=== PATIENT | female | born 1965 | race Caucasian/White ===

== ENCOUNTER 2017-07-13 12:57 | Emergency (ER) | payer BC ==
[~2017-07-13] VITALS: Ht 162.6 cm; Wt 55.0 kg
[2017-07-13] MEDS ORDERED: IOHEXOL 350 MG/ML 10 ML VIAL (for RAD DIAG) IVCONTRAST ONE (12:58)
--- NOTE | 2017-07-13 13:18 | PD ---
Physical Exam Date Seen by Provider: Jul 13, 2017 Time Seen by Provider: 13:16 Narrative 51 yo female here for palpitations and lower abdominal pain. Going on since today. period started today but she has not had one in some time. Pain is cramping and severe. Some SOB with excertion and feeling heart is palpitating. Vitals are stable in triage. Awaiting bed placement. Data Data Orders Orders Electrocardiogram (07/13/17 13:15) Complete Blood Count With Diff (07/13/17 13:15) Comprehensive Metabolic Panel (07/13/17 13:15) Ckmb (Isoenzyme) Profile (07/13/17 13:15) Troponin I (07/13/17 13:15) Lipase (07/13/17 13:15) Urinalysis - C+S If Indicated (07/13/17 13:15) Magnesium (Mg) (07/13/17 13:15) Thyroid Stimulating Hormone (07/13/17 13:15) Ed Urine Pregnancytest Poc (07/13/17 13:15) [facility] Medical Record Reviewed: Yes Supervised Visit with SEFERINO: No John Allan Jul 13, 2017 13:18
--- NOTE | 2017-07-13 14:02 | PD ---
HPI Chief Complaint: Abdominal Pain Time Seen by Provider: 14:00 Travel History International Travel<30 days: No Contact w/Intl Traveler<30days: No Traveled to known affect area: No History of Present Illness HPI 51-year-old with complaints of lower abdominal cramping, and palpitations. Patient also complains of shortness of breath with exertion. She started a period today which she has not had for some time. She states she had a regular flow this morning but now none. She denies chest pain but feels her heart is pending. The patient's current cramping is mainly in the suprapubic area. She denies flank pain. She is nauseous but no vomiting. Denies fever. Denies vaginal discharge other than previous blood. Unsure if she could be . Her last period was in April but she is perimenopausal. Pain is currently an 8 out of 10. She has no known drug allergies. PFSH Past Medical History ?: Not LMP: 07/13/17 Past Surgical History Abdominal Surgery: No Social History Alcohol Use: Yes Tobacco Use: No Substance Use: No Allergies-Medications (Allergen,Severity, Reaction): Coded Allergies: No Known Allergies (Unverified , 07/13/17) Reported Meds & Prescriptions Reported Meds & Active Scripts Active Tramadol (Tramadol HCl) 50 Mg Tab 50 Mg PO Q8H PRN Physical Exam Narrative GENERAL: Patient appears in mild to moderate distress. SKIN: Warm and dry.. Normal turgor. No rash. HEAD: Atraumatic. Normocephalic. EYES: Pupils equal and round. No scleral icterus. No injection or drainage. ENT: No nasal bleeding or discharge. Mucous membranes pink and moist. Pharynx is clear. Airway is patent. NECK: Trachea midline. Supple and nontender. CARDIOVASCULAR: Regular rate and rhythm. RESPIRATORY: No accessory muscle use. Clear to auscultation. Breath sounds equal bilaterally. GASTROINTESTINAL: Abdomen soft, moderate diffuse lower abdominal tenderness. Nondistended. No CVA tenderness. Question of rebound tenderness in the right lower quadrant. Bowel sounds present in all quadrants. Hepatic and splenic margins not palpable. MUSCULOSKELETAL: Extremities without clubbing, cyanosis, or edema. No obvious deformities. NEUROLOGICAL: Awake and alert. No obvious cranial nerve deficits. Motor grossly within normal limits. Five out of 5 muscle strength in the arms and legs. Normal speech. PSYCHIATRIC: Appropriate mood and affect; insight and judgment normal. Data Data Last Documented VS Vital Signs Date Time Temp Pulse Resp B/P (MAP) Pulse Ox O2 Delivery O2 Flow Rate FiO2 07/13/17 19:45 07/13/17 17:33 98.6 69 18 99 Room Air Orders Orders Electrocardiogram (07/13/17 13:15) Complete Blood Count With Diff (07/13/17 13:15) Comprehensive Metabolic Panel (07/13/17 13:15) Ckmb (Isoenzyme) Profile (07/13/17 13:15) Troponin I (07/13/17 13:15) Lipase (07/13/17 13:15) Urinalysis - C+S If Indicated (07/13/17 13:15) Magnesium (Mg) (07/13/17 13:15) Thyroid Stimulating Hormone (07/13/17 13:15) Ed Urine Pregnancytest Poc (07/13/17 13:15) Ct Abd/Pel W Iv Contrast(Rout) (07/13/17 14:11) Iv Access Insert/Monitor (07/13/17 14:11) Ecg Monitoring (07/13/17 14:11) Oximetry (07/13/17 14:11) NPO (07/13/17 14:11) Morphine Inj (Morphine Inj) (07/13/17 14:15) Ondansetron Inj (Zofran Inj) (07/13/17 14:15) Sodium Chlor 0.9% 1000 Ml Inj (Ns 1000 M (07/13/17 14:11) Sodium Chloride 0.9% Flush (Ns Flush) (07/13/17 14:15) Oral Contrast - Adult (07/13/17 14:25) Ketorolac Inj (Toradol Inj) (07/13/17 14:45) Diatrizoate Liq ( Gastroview Liq) (07/13/17 15:52) Iohexol 350 Inj (Omnipaque 350 Inj) (07/13/17 12:58) Labs Laboratory Tests Test 07/13/17 14:30 White Blood Count 14.3 TH/MM3 Red Blood Count 4.95 MIL/MM3 Hemoglobin 14.6 GM/DL Hematocrit 44.5 % Mean Corpuscular Volume 90.0 FL Mean Corpuscular Hemoglobin 29.5 PG Mean Corpuscular Hemoglobin Concent 32.8 % Red Cell Distribution Width 13.6 % Platelet Count 343 TH/MM3 Mean Platelet Volume 7.2 FL Neutrophils (%) (Auto) 91.9 % Lymphocytes (%) (Auto) 3.6 % Monocytes (%) (Auto) 3.6 % Eosinophils (%) (Auto) 0.3 % Basophils (%) (Auto) 0.6 % Neutrophils # (Auto) 13.1 TH/MM3 Lymphocytes # (Auto) 0.5 TH/MM3 Monocytes # (Auto) 0.5 TH/MM3 Eosinophils # (Auto) 0.0 TH/MM3 Basophils # (Auto) 0.1 TH/MM3 CBC Comment DIFF FINAL Differential Comment Urine Color YELLOW Urine Turbidity CLEAR Urine pH 6.0 Urine Specific [place] 1.031 Urine Protein TRACE mg/dL Urine Glucose (UA) NEG mg/dL Urine Ketones NEG mg/dL Urine Occult Blood SMALL Urine Nitrite NEG Urine Bilirubin NEG Urine Urobilinogen LESS THAN 2.0 MG/DL Urine Leukocyte Esterase NEG Urine RBC 7 /hpf Urine WBC 1 /hpf Urine Squamous Epithelial Cells <1 /hpf Urine Mucus MOD /lpf Microscopic Urinalysis Comment CULT NOT INDICATED Blood Urea Nitrogen 12 MG/DL Creatinine 0.94 MG/DL Random Glucose 82 MG/DL Total Protein 7.8 GM/DL Albumin 3.9 GM/DL Calcium Level 8.3 MG/DL Magnesium Level 2.1 MG/DL Alkaline Phosphatase 53 U/L Aspartate Amino Transf (AST/SGOT) 10 U/L Alanine Aminotransferase (ALT/SGPT) 20 U/L Total Bilirubin 0.4 MG/DL Sodium Level 137 MEQ/L Potassium Level 3.8 MEQ/L Chloride Level 101 MEQ/L Carbon Dioxide Level 28.7 MEQ/L Anion Gap 7 MEQ/L Estimat Glomerular Filtration Rate 63 ML/MIN Total Creatine Kinase 75 U/L Troponin I LESS THAN 0.02 NG/ML Lipase 74 U/L Thyroid Stimulating Hormone 3rd Gen 1.650 uIU/ML [facility] Medical Decision Making Medical Screen Exam Complete: Yes Emergency Medical Condition: Yes Differential Diagnosis Lower abdominal pain. Urinary tract infection. . Possible tubal. Appendicitis. Narrative Course Patient appears medically stable at time of exam. EKG and CT of the abdomen and pelvis ordered. Urinalysis and urine is ordered. Labs ordered including CBC, CMP, TSH, lipase, cardiac panel. IV access is obtained patient is given Zofran 4 mg IV as well as Toradol 30 mg IV. Patient is not per urinary test. CBC shows a leukocytosis of 14.3 with neutrophils of 91.9%. CMP is unremarkable. Troponin is less than 0.02. Lipase is normal. TSH is normal. BUN/creatinine are normal. Urinalysis is unremarkable. 1900 hrs. patient states she has improved after the Zofran and Toradol in her abdominal symptoms. The results are still pending. Care the patient is turned over to Dr. Willson pending CT results. Scripts Tramadol (Tramadol) 50 Mg Tab 50 MG PO Q8H Y for PAIN, #10 TAB 0 Refills Prov: Bari Willson MD 07/13/17 Condition: Stable Brenton Cordova Jul 13, 2017 14:02
[2017-07-13] MEDS ORDERED: SODIUM CHLOR 0.9% 1000 ML INJ 1,000 ML IV SCH (14:11)
[2017-07-13] MEDS ORDERED: SODIUM CHLORIDE 0.9% FLUSH 10 ML FLUSH IV FLUSH PRN (14:15)
[2017-07-13] MEDS ORDERED: ONDANSETRON HCL 4 MG/2 ML VIAL IVP ONE (14:15)
[2017-07-13] MEDS ORDERED: MORPHINE SULFATE 4 MG/ML INJ IV PUSH ONE (14:15)
[2017-07-13] MEDS ORDERED: KETOROLAC TROMETHAMINE 60 MG/2 ML (IM) VIAL IM ONE (14:45)
[2017-07-13 15:09] LABS: AUTOMATED NEUTROPHIL # 13.1 TH/MM3 (1.8-7.7); BASOPHIL # 0.1 TH/MM3 (0-0.2); BASOPHIL % 0.6 % (0.0-2.0); EOSINOPHIL % 0.3 % (0.0-4.0); HEMATOCRIT 44.5 % (35.0-46.0); HEMO FLAGS DIFF FINAL; LYMPH % 3.6 % (9.0-44.0); LYMPHOCYTE # 0.5 TH/MM3 (1.0-4.8); MEAN CORPUSCULAR HEMOGLOBIN 29.5 PG (27.0-34.0); MEAN CORPUSCULAR HGB CONC 32.8 % (32.0-36.0); MONO % 3.6 % (0.0-8.0); NEUT % 91.9 % (16.0-70.0); PLATELET COUNT 343 TH/MM3 (150-450); RED BLOOD COUNT 4.95 MIL/MM3 (4.00-5.30); RED CELL DISTRIBUTION WIDTH 13.6 % (11.6-17.2); WHITE BLOOD COUNT 14.3 TH/MM3 (4.0-11.0)
[2017-07-13 15:17] LABS: ANION GAP 7 MEQ/L (5-15); AST (GOT) 10 U/L (15-37); BICARBONATE 28.7 MEQ/L (21.0-32.0); BLOOD UREA NITROGEN 12 MG/DL (7-18); CHLORIDE 101 MEQ/L (98-107); GLOMERULAR FILTRATION RATE 63 ML/MIN (>89); MAGNESIUM 2.1 MG/DL (1.5-2.5); POTASSIUM 3.8 MEQ/L (3.5-5.1); SODIUM (NA) 137 MEQ/L (136-145)
[2017-07-13 15:28] LABS: ALKALINE PHOSPHATASE 53 U/L (45-117); ALT (GPT) 20 U/L (10-53); TOTAL BILIRUBIN ADULT 0.4 MG/DL (0.2-1.0)
[2017-07-13 15:33] LABS: CREATINE KINASE 75 U/L (26-192)
[2017-07-13 15:46] LABS: BLOOD, URINE SMALL (NEG); COMMENT (UR) CULT NOT INDICATED; CULTURE IF INDICATED CULT NOT INDICATED; GLUCOSE,URINE NEG (NEG); KETONE, URINE NEG (NEG); MUCUS URINE MOD /lpf (OCC); NITRITE,URINE NEG (NEG); SQUAMOUS EPITHELIAL CELL URINE <1 /hpf (0-5); URINE COLOR YELLOW (YELLW/STRAW)
[2017-07-13 15:50] VITALS: O2SAT 99
[2017-07-13] MEDS ORDERED: DIATRIZOATE MEGLUM/DIATRIZOATE SOD 9 ML CUP ONE (15:52)
[2017-07-13 17:33] VITALS: BP 126/71; PULSE 69; RESP 18; TEMP 98.6; O2SAT 99
--- NOTE | 2017-07-13 19:15 | RADRPT ---
EXAM DATE/TIME: 07/13/2017 18:28 [place] COMPARISON: No previous studies available for comparison. INDICATIONS : Low abdomen pain with nausea. IV CONTRAST: 86 cc Omnipaque 350 (iohexol) IV ORAL CONTRAST: Prescribed oral contrast ingested. RADIATION DOSE: 4.91 CTDIvol (mGy) MEDICAL HISTORY : None SURGICAL HISTORY : section. ENCOUNTER: Initial ACUITY: 1 day PAIN SCALE: 6/10 LOCATION: Bilateral lower quadrant TECHNIQUE: Volumetric scanning of the abdomen and pelvis was performed. Using automated exposure control and adjustment of the mA and/or kV according to patient size, radiation dose was kept as low as reasonably achievable to obtain optimal diagnostic quality images. DICOM format image data is av ailable electronically for review and comparison. FINDINGS: There is a small 0.6 cm hypodensity seen in the lateral segment of the left lobe of th e liver likely representing a small cyst or hemangioma. The liver is otherwise unremarkable. The sp simon, pancreas, adrenal glands and kidneys are normal. There are minimal calcifications seen through out the arterial system. No aneurysm is seen. The bowel is unremarkable. There is an area of low density seen in the central aspects of the uterine cervix. The uterus and ov alex appear otherwise unremarkable. The patient does have a 1.9 cm area of low density seen at the right introitus likely representing a Bartholin gland cyst. Bilateral breast implants are seen in the lower chest. The lung bases are clear. The bony structure s are grossly intact. CONCLUSION: 1. 3.7 cm area of low density in the central aspect of the uterine cervix. This could represent fluid in the endocervical canal versus a low density lesion such as a leiomyoma. 2. Bartholin gland cyst at the right introitus. Alan Chavez MD on July 13, 2017 at 18:51 Board Certified Radiologist. This report was verified electronically.
[2017-07-13] MEDS ORDERED: TRAM50TA PO (19:34)
--- NOTE | 2017-07-13 19:35 | PD ---
Data Data Last Documented VS Vital Signs Date Time Temp Pulse Resp B/P (MAP) Pulse Ox O2 Delivery O2 Flow Rate FiO2 07/13/17 17:33 98.6 69 18 126/71 (89) 99 Room Air Orders Orders Electrocardiogram (07/13/17 13:15) Complete Blood Count With Diff (07/13/17 13:15) Comprehensive Metabolic Panel (07/13/17 13:15) Ckmb (Isoenzyme) Profile (07/13/17 13:15) Troponin I (07/13/17 13:15) Lipase (07/13/17 13:15) Urinalysis - C+S If Indicated (07/13/17 13:15) Magnesium (Mg) (07/13/17 13:15) Thyroid Stimulating Hormone (07/13/17 13:15) Ed Urine Pregnancytest Poc (07/13/17 13:15) Ct Abd/Pel W Iv Contrast(Rout) (07/13/17 14:11) Iv Access Insert/Monitor (07/13/17 14:11) Ecg Monitoring (07/13/17 14:11) Oximetry (07/13/17 14:11) NPO (07/13/17 14:11) Morphine Inj (Morphine Inj) (07/13/17 14:15) Ondansetron Inj (Zofran Inj) (07/13/17 14:15) Sodium Chlor 0.9% 1000 Ml Inj (Ns 1000 M (07/13/17 14:11) Sodium Chloride 0.9% Flush (Ns Flush) (07/13/17 14:15) Oral Contrast - Adult (07/13/17 14:25) Ketorolac Inj (Toradol Inj) (07/13/17 14:45) Diatrizoate Liq ( Gastroview Liq) (07/13/17 15:52) Iohexol 350 Inj (Omnipaque 350 Inj) (07/13/17 12:58) Labs Laboratory Tests Test 07/13/17 14:30 White Blood Count 14.3 TH/MM3 Red Blood Count 4.95 MIL/MM3 Hemoglobin 14.6 GM/DL Hematocrit 44.5 % Mean Corpuscular Volume 90.0 FL Mean Corpuscular Hemoglobin 29.5 PG Mean Corpuscular Hemoglobin Concent 32.8 % Red Cell Distribution Width 13.6 % Platelet Count 343 TH/MM3 Mean Platelet Volume 7.2 FL Neutrophils (%) (Auto) 91.9 % Lymphocytes (%) (Auto) 3.6 % Monocytes (%) (Auto) 3.6 % Eosinophils (%) (Auto) 0.3 % Basophils (%) (Auto) 0.6 % Neutrophils # (Auto) 13.1 TH/MM3 Lymphocytes # (Auto) 0.5 TH/MM3 Monocytes # (Auto) 0.5 TH/MM3 Eosinophils # (Auto) 0.0 TH/MM3 Basophils # (Auto) 0.1 TH/MM3 CBC Comment DIFF FINAL Differential Comment Urine Color YELLOW Urine Turbidity CLEAR Urine pH 6.0 Urine Specific [place] 1.031 Urine Protein TRACE mg/dL Urine Glucose (UA) NEG mg/dL Urine Ketones NEG mg/dL Urine Occult Blood SMALL Urine Nitrite NEG Urine Bilirubin NEG Urine Urobilinogen LESS THAN 2.0 MG/DL Urine Leukocyte Esterase NEG Urine RBC 7 /hpf Urine WBC 1 /hpf Urine Squamous Epithelial Cells <1 /hpf Urine Mucus MOD /lpf Microscopic Urinalysis Comment CULT NOT INDICATED Blood Urea Nitrogen 12 MG/DL Creatinine 0.94 MG/DL Random Glucose 82 MG/DL Total Protein 7.8 GM/DL Albumin 3.9 GM/DL Calcium Level 8.3 MG/DL Magnesium Level 2.1 MG/DL Alkaline Phosphatase 53 U/L Aspartate Amino Transf (AST/SGOT) 10 U/L Alanine Aminotransferase (ALT/SGPT) 20 U/L Total Bilirubin 0.4 MG/DL Sodium Level 137 MEQ/L Potassium Level 3.8 MEQ/L Chloride Level 101 MEQ/L Carbon Dioxide Level 28.7 MEQ/L Anion Gap 7 MEQ/L Estimat Glomerular Filtration Rate 63 ML/MIN Total Creatine Kinase 75 U/L Troponin I LESS THAN 0.02 NG/ML Lipase 74 U/L Thyroid Stimulating Hormone 3rd Gen 1.650 uIU/ML MDM Supervised Visit with SEFERINO: Yes Narrative Course The patient was initially evaluated by my PA as well as the previous provider and signed out to me at the end of their shift at approximately 7:00 PM. See their note for further details. Briefly this is a 51-year-old female who is here for evaluation of lower abdominal pain and vaginal bleeding that started earlier today. Vaginal bleeding has stopped. Patient was given Toradol by the previous provider with improvement in pain. Vital signs show heart rate 69, blood pressure 126/71, pulse ox 99% on room air , oral temp of 98.6F. CBC shows WBC 14.3, hemoglobin 14.6, hematocrit 44.5, platelets 343, neutrophils 91.9%. CMP is unremarkable. Cardiac enzymes are negative. Lipase is 74. TSH is 1.65. Urine is negative. UA shows small occult blood, 7 rbc's, not suggestive of UTI. CT abdomen pelvis: CONCLUSION: 1. 3.7 cm area of low density in the central aspect of the uterine cervix. This could represent fluid in the endocervical canal versus a low density lesion such as a leiomyoma. 2. Bartholin gland cyst at the right introitus. On my assessment the patient is resting comfortably. She has mild suprapubic tenderness without peritoneal signs. She reports history of Bartholin's cyst on the right, however states today this is not causing her any discomfort. She was made aware of all findings and provided a copy of her CT abdomen pelvis report. She is sexually active with one partner, her , and is in a monogamous relationship. At this point she is stable for further workup as an outpatient. She will follow-up with her [facility] [employer] doctor. I stressed the importance of follow-up to rule out a uterine mass or cancer. She was informed on when to return to the emergency department. She verbalizes understanding and agreement with plan. Diagnosis Primary Impression: Leiomyoma Additional Impressions: Bartholin's cyst Hepatic cyst Referrals: Echo Tech 3 days Primary Care Physician 3 days Additional Instruction: Follow-up with your DI[employer] doctor this week. Follow-up with a primary care physician this week. Return to the emergency department for worsening symptoms or any other concerns. Scripts Tramadol (Tramadol) 50 Mg Tab 50 MG PO Q8H Y for PAIN, #10 TAB 0 Refills Prov: Bari Willson MD 07/13/17 Disposition: 01 DISCHARGE HOME Condition: Stable Bari Willson MD Jul 13, 2017 19:35
--- NOTE | 2017-07-14 17:41 | EKG ---
Date Performed: 07/13/2017 Time Performed: 14:37:16 PTAGE: 51 years EKG: Sinus rhythm NORMAL ECG NO PREVIOUS TRACING DOCTOR: Lauro Banuelos Interpretating Date/Time 07/14/2017 17:36:34
== END 2017-07-13 19:46 | disposition home or self-care (01) ==
LOC: NEPD 12:57
DX: D25.9 Leiomyoma of uterus, unspecified (principal); N75.0 Cyst of Bartholin's gland; K76.89 Other specified diseases of liver; R06.02 Shortness of breath; R00.2 Palpitations
CPT/HCPCS: 74177; 80053; 81001; 82550; 83690; 83735; 84443; 84484; 84703; 85025; 93005; 96361; 96372; 96374; 99285; J1885; J2405; J7030; Q9963; Q9967